=== PATIENT | female | born 1985 | race Caucasian/White ===

== ENCOUNTER 2018-12-28 17:38 | Emergency (ER) | payer OTHER ==
[~2018-12-28] VITALS: Ht 165.1 cm; Wt 79.6 kg
[~2018-12-28 17:38] MED LIST: OXYC1TAB PO
[2018-12-28 18:13] VITALS: BP 130/67
--- NOTE | 2018-12-28 18:18 | NUR ---
PT AMBULATED TO LOBBY AT THIS TIME. VSS.
[2018-12-28 18:52] LABS: BASOPHILS % (AUTO) 0.3 % (0.0-2.0); EOSINOPHILS % (AUTO) 0.1 % (0.0-4.0); HEMATOCRIT 39.4 % (36-48); HEMOGLOBIN 13.2 g/dL (12.0-16.0); LYMPHOCYTES # (AUTO) 1.5 K/uL (2.5-16.5); LYMPHOCYTES % (AUTO) 12.2 % (20.5-51.1); MEAN CORPUSCULAR HEMOGLOBIN 31 pg (27-31); MEAN CORPUSCULAR HGB CONC 34 g/dL (33-37); MEAN CORPUSCULAR VOLUME 92.7 fL (80-94); MONOCYTES # (AUTO) 0.8 K/uL (0.8-1.0); MONOCYTES % (AUTO) 6.5 % (1.7-9.3); NEUTROPHILS # (AUTO) 9.7 K/uL (1.8-7.7); NEUTROPHILS % (AUTO) 80.9 % (42.2-75.2); PLATELET COUNT (AUTO) 208 K/uL (140-450); RED BLOOD CELL COUNT(AUTO) 4.25 MIL/uL (4.20-5.40); RED CELL DISTRIBUTION WIDTH 13.1 % (11.6-13.7)
--- NOTE | 2018-12-28 19:20 | NUR ---
PT AMBULATED TO ER BED 02
[2018-12-28 19:23] LABS: ANION GAP 11.8 (8-16); CARBON DIOXIDE 27.7 mmol/L (21-32); POTASSIUM 3.5 mmol/L (3.5-5.1)
[2018-12-28 19:24] LABS: APPEARANCE,URINE HAZY (CLEAR); BILIRUBIN,URINE NEGATIVE (NEGATIVE); BLOOD, URINE NEGATIVE (NEGATIVE); COLOR,URINE YELLOW (YELLOW); LEUKOCYTE ESTERASE ,URINE TRACE (NEGATIVE); NITRITE, URINE NEGATIVE (NEGATIVE); PH,URINE >=9.0 (5.0-9.0); UGLUCOSE NEGATIVE (NEGATIVE)
--- NOTE | 2018-12-28 19:26 | NUR ---
PT PRESENTS TO THE ED WITH C/O ABD PAIN AND BLOATEDNESS. PER PATIENT SHE WAS SENT TO THE ED FROM AN URGENT CARE FOR A CT ABD. PT STATES HER SYMPTOMS STARTED YESTERDAY. PT REPORTS NAUSEA AND BLOATEDNESS. BOWEL SOUNDS PRESENT ON ALL QUADRANTS. NO TENDERNESS WITH PALPATION. DENIES VOMITING OR DIARRHEA. HX: CHOLECYSTECTOMY, HERNIA
[2018-12-28 19:29] LABS: TOTAL BILIRUBIN 0.7 mg/dL (0.0-1.0)
[2018-12-28 19:32] LABS: RBC,URINE NONE SEEN /HPF (0-5)
[2018-12-28] MEDS ORDERED: CEPHALEXIN 500 MG CAP PO ONE (22:40)
[2018-12-28 23:19] VITALS: BP 130/67
--- NOTE | 2018-12-28 23:19 | NUR ---
Patient discharged with v/s stable. Written and verbal after care instructions given and explained. Patient alert, oriented and verbalized understanding of instructions. Ambulatory with steady gait. All questions addressed prior to discharge. ID band removed. Patient advised to follow up with PMD. Rx of keflex and ibuprofen given. Patient educated on indication of medication including possible reaction and side effects. Opportunity to ask questions provided and answered.
== END 2018-12-28 23:19 | disposition home or self-care (01) ==
LOC: MED 17:38
DX: N30.00 Acute cystitis without hematuria (principal); R19.7 Diarrhea, unspecified; Z90.49 Acquired absence of other specified parts of digestive tract; Z87.42 Personal history of other diseases of the female genital tract; Z87.19 Personal history of other diseases of the digestive system
CPT/HCPCS: 36415; 74177; 80053; 81001; 81025; 85025; 87086; 99284; Q9967